=== PATIENT | female | born 1975 | race Caucasian/White ===

== ENCOUNTER 2018-06-16 21:35 | Emergency (ER) | payer BC, OTHER ==
[2018-06-16] MEDS ORDERED: CEPHALEXIN 500 MG CAPSULE PO STA (21:56)
[2018-06-16] MEDS ORDERED: PREDNISONE 20 MG TAB PO ONE (21:56)
--- NOTE | 2018-06-16 22:02 | Emergency Department Record ---
History of Present Illness - General Chief complaint: Poison carline/oak/sumac exposure Stated complaint: POISON CARLINE Time Seen by Provider: 06/16/18 21:46 Source: Patient Mode of Arrival: Ambulatory Limitations: No limitations - History of Present Illness Initial comments: The patient is here due to a rash to the back of the R lower leg for 8 days. It has been very itchy at times. The patient has been outside a lot playing golf and is very susceptible to poison carline. She does have some blistering now. There has been no calf pain, swelling, fever, or posterior knee pain. MD complaint: Rash Onset/Timin -: Days(s) Location: [facility] Severity: Mild Improves with: Medication, Topical medication Worsens with: None Associated symptoms: Itching Treatments Prior to Arrival: Benadryl, Corticosteroid, OTC topical medication - Related Data Previous Rx's Medication Instructions Recorded Cephalexin [Keflex] 500 mg PO QID #28 cap 06/16/18 Prednisone [Prednisone 20Mg] 20 mg PO ASDIR #15 tab 06/16/18 Allergies Allergy/AdvReac Type Severity Reaction Status Date / Time prochlorperazine Allergy VOMITING Verified 06/16/18 21:42 [From Compazine] Travel Screening - Travel/Exposure Within Last 30 Days Have you traveled within the last 30 days?: No - Travel/Exposure Within Last Year Have you traveled outside the [place] in the last year?: No - Additonal Travel Details Have you been exposed to anyone with a communicable illness?: No - Travel Symptoms Symptom Screening: None Review of Systems Constitutional: Denies: Chills, Fever Eyes: Denies: Eye discharge ENT: Denies: Congestion Respiratory: Denies: Cough, Dyspnea Past Medical History - SOCIAL HISTORY Smoking Status: Never smoker Alcohol Use: Rare Drug Use: None - RESPIRATORY Hx Respiratory Disorders: No - CARDIOVASCULAR Hx Cardio Disorders: No - NEURO Hx Neuro Disorders: No - GI Hx GI Disorders: No - Hx Genitourinary Disorders: No - ENDOCRINE Hx Endocrine Disorders: No - MUSCULOSKELETAL Hx Musculoskeletal Disorders: No - PSYCH Hx Psych Problems: No - HEMATOLOGY/ONCOLOGY Hx Hematology/Oncology Disorders: No Family Medical History Any Significant Family History?: No Physical Exam - General General Appearance: Alert, Oriented x3, Cooperative, No acute distress - Head Head exam: Atraumatic, Normocephalic, Normal inspection - Eye Eye exam: Normal appearance - Neck Neck exam: Normal inspection - Respiratory Respiratory exam: Normal lung sounds bilaterally. negative: Respiratory distress - Cardiovascular Cardiovascular Exam: Regular rate, Normal rhythm, Normal heart sounds - Extremities Extremities exam: Full ROM, Tenderness. negative: Normal inspection (There is some blistering to the posterior inferior R lower leg with erythematous satellite lesions. The blister is about 2x2 cm and has mild tenderness surrouding the area. There is no cellulitis. ) Image of Full Body: 1 - Area of rash and satellite lesions. - Neurological Neurological exam: Alert, Normal gait. negative: Abnormal gait, Motor sensory deficit - Skin Skin exam: Rash Course Vital Signs 06/16/18 21:43 Temperature 98.3 F Pulse Rate 77 Respiratory 18 Rate Blood Pressure 138/69 Pulse Ox 100 - Reevaluation(s) Reevaluation #1: Procedure note: The blister was unroofed with sterile scissors and cleansed and dressed. 06/16/18 22:00 Disposition Disposition: Discharge Clinical Impression: Skin rash Disposition: Home, Self-Care Condition: (2) Stable Instructions: Poison Carline (ED) Additional Instructions: Please keep the area clean and wash daily and dress with Abx ointment. Take the Keflex and Prednisone as directed and use an OTC medicine for itching. Please see your family doctor if not better in 3 days and return to the ER for any worsening symptoms. Prescriptions: Cephalexin [Keflex] 500 mg PO QID #28 cap Prednisone [Prednisone 20Mg] 20 mg PO ASDIR #15 tab Forms: Patient Portal Access Time of Disposition: 22:02 Quality - Quality Measures Quality Measures: N/A - Blood Pressure Screening View Details: Yes Does Patient Have Any of the Following: No Blood Pressure Classification: Pre-Hypertensive BP Reading Systolic Measurement: 138 Diastolic Measurement: 69 Screening for High Blood Pressure: < Pre-Hypertensive BP, F/U Documented > [G8950] Pre-Hypertensive Follow-up Interventions: Referral to alternative/primary care provider.
== END 2018-06-16 22:19 | disposition home or self-care (01) ==
LOC: ER 21:35
DX: R21 Rash and other nonspecific skin eruption (principal)
CPT/HCPCS: 99282 ×2; J7512